=== PATIENT | male | born 1965 | race Caucasian/White ===

== ENCOUNTER 2020-08-02 13:24 | Emergency (ER) | payer OTHER ==
[2020-08-02 13:30] VITALS: TEMP 99; BMI 26.6
[2020-08-02] MEDS ORDERED: SODIUM CHLORIDE 0.9% 1000 ML INFUS.BAG IV ONE ×2 (13:35→14:39)
[2020-08-02 14:12] LABS: BASO % 3.3 % (0-2.0); EOS % 1.1 % (0-4.5); HEMATOCRIT 49.3 % (35.4-49); HEMOGLOBIN 16.1 GM/dl (11.7-16.9); LYMPH % 18.1 % (8-40); MCHC 32.6 g/dl (32.0-35.9); MEAN CELL VOLUME 98.2 fl (80-96); MEAN PLT VOLUME 8.9 fl (7.5-11.1); MONO % 6.5 % (3.8-10.2); PLATELET COUNT 267 K/MM3 (134-434); RBC 5.02 M/mm3 (4.00-5.60); WHITE BLOOD COUNT 7.3 K/mm3 (4.0-10.8)
[2020-08-02 14:17] LABS: ALBUMIN 4.2 g/dl (3.4-5.0); BILIRUBIN,TOTAL 0.8 mg/dl (0.2-1); CALCIUM 9.6 mg/dl (8.5-10); CREATININE 1.1 mg/dl (0.55-1.3); POTASSIUM 3.9 mmol/L (3.5-5.1); TOT PROT 7.3 g/dl (6.4-8.2)
[2020-08-02] MEDS ORDERED: LACTATED RINGERS SOLUTION 1000 ML INFUS.BAG IV ONE (16:53)
[2020-08-02 19:14] VITALS: BP 128/79; PULSE 77
== END 2020-08-02 19:45 | disposition home or self-care (01) ==
LOC: FER 13:24
DX: R00.0 Tachycardia, unspecified (principal); R42 Dizziness and giddiness
CPT/HCPCS: 36415; 71045-TC-FY; 71275-TC; 80053; 82550; 84443; 84484; 85025; 93005; 99285-25; C9803; Q9967; U0003

== ENCOUNTER 2021-07-09 19:19 | Emergency (ER) | payer OTHER ==
[2021-07-09 19:28] VITALS: BP 138/86; PULSE 54; TEMP 97.4; BMI 25.8
[2021-07-09 20:04] LABS: INR 1.09 (0.83-1.09); PROTHROMBIN TIME (PATIENT) 12.1 SEC (9.7-13.0)
[2021-07-09 20:09] LABS: ALBUMIN 3.8 g/dl (3.4-5.0); BILIRUBIN,TOTAL 0.6 mg/dl (0.2-1); CALCIUM 9.2 mg/dl (8.5-10); CREATININE 0.9 mg/dl (0.55-1.3); TOT PROT 6.4 g/dl (6.4-8.2)
[2021-07-09 20:19] LABS: BASO % 0.7 % (0-2.0); EOS % 2.3 % (0-4.5); HEMATOCRIT 43.1 % (35.4-49); HEMOGLOBIN 14.7 GM/dL (11.7-16.9); LYMPH % 26.1 % (8-40); MCH 32.1 pg (25.7-33.7); MCHC 34.1 g/dl (32.0-35.9); MONO % 9.1 % (3.8-10.2); NEUT % 61.8 % (42.8-82.8); PLATELET COUNT 282 10^3/uL (134-434); RBC 4.58 M/mm3 (4.00-5.60); RDW 12.4 % (11.9-15.9); WHITE BLOOD COUNT 6.3 K/mm3 (4.0-10.0)
== END 2021-07-09 21:55 | disposition home or self-care (01) ==
LOC: FER 19:19
DX: H53.123 Transient visual loss, bilateral (principal)
CPT/HCPCS: 36415; 70450-TC; 80053; 81003; 82550; 84484; 85025; 85610; 85651; 86140; 93005; 99284-25

== ENCOUNTER 2023-06-03 15:24 | Emergency (ER) | payer OTHER ==
[2023-06-03 15:36] VITALS: BP 128/92; PULSE 67; RESP 18; TEMP 98.2; BMI 28.8
[2023-06-03] MEDS ORDERED: ALBUTEROL SO4 2.5/IPRATROPIUM 0.5 INH SOL 3 ML VIAL.NEB. NEB ONE ×2 (15:43→16:07)
== END 2023-06-03 16:45 | disposition home or self-care (01) ==
LOC: FER 15:24
PROC: 3E0F7GC Introduction of Other Therapeutic Substance into Respiratory Tract, Via Natural or Artificial Opening (ICD-10-PCS; principal; 2023-06-03)
DX: R05.1 Acute cough (principal); R09.3 Abnormal sputum; J02.9 Acute pharyngitis, unspecified; Z20.822 Contact with and (suspected) exposure to COVID-19
CPT/HCPCS: 0241U-QW; 87070; 99283-25

== ENCOUNTER 2023-07-16 13:54 | Emergency (ER) | payer OTHER ==
[2023-07-16 14:20] VITALS: TEMP 97.8; BMI 30.1
[2023-07-16 14:25] LABS: HEMATOCRIT 47.5 % (35.4-49); HEMOGLOBIN 16.4 G/dL (11.7-16.9); MCH 32.2 pg (25.7-33.7); MCHC 34.6 g/dl (32.0-35.9); MEAN PLT VOLUME 9.3 fl (7.5-11.1); PLATELET COUNT 298.8 10^3/uL (134-434); RBC 5.11 10^6/uL (4.00-5.60); RDW 13.6 % (11.9-15.9); WHITE BLOOD COUNT 8.7 10^3/uL (4.0-10.8)
[2023-07-16 14:27] LABS: INR 0.97 (0.83-1.09); PROTHROMBIN TIME (PATIENT) 11.3 SEC (9.7-13.0)
[2023-07-16 14:38] LABS: ALBUMIN 4.6 g/dl (3.4-5.0); BILIRUBIN,TOTAL 0.6 mg/dl (0.2-1); CALCIUM 9.8 mg/dl (8.5-10.1); CREATININE 1.1 mg/dl (0.6-1.3); POTASSIUM 3.2 mmol/L (3.5-5.1); TOT PROT 7.1 g/dl (6.4-8.2)
[2023-07-16 15:11] VITALS: RESP 16
[2023-07-16] MEDS ORDERED: ASPIRIN 81 MG CHEWABLE TABLETS PO ONE (15:11)
[2023-07-16] MEDS ORDERED: ASPIRIN 81 MG CHEWABLE TABLETS ONE (15:12)
[2023-07-16 15:37] VITALS: BP 125/90; PULSE 75
[2023-07-16 15:40] LABS: PLATELET ESTIMATE ADEQUATE
== END 2023-07-16 15:40 | disposition home or self-care (01) ==
LOC: FER 13:54
DX: G45.9 Transient cerebral ischemic attack, unspecified (principal); R47.81 Slurred speech; R51.9 Headache, unspecified
CPT/HCPCS: 36415; 70450-TC; 80053; 82962; 84484; 85027; 85610; 85730; 93005; 99285-25